=== PATIENT | male | born 1965 | race Caucasian/White ===

== ENCOUNTER → 2017-10-17 | Outpatient (CLI) | payer BC ==
[~2017-10-17] VITALS: Ht 170.2 cm; Wt 97.5 kg
[~2017-10-17] MED LIST: ASP81TEC PO; CATHETER FLUSH 10 ML SYR IV PRN; CEFD300C3 PO; ISM30TCR PO; LISI10TA PO; MTP25TSR PO; OMEP20CA6 PO; OMG1KC PO; PARO40TA47 PO; PNT40TEC PO; PRD20T PO; ROSU20TA14 PO; TICA90TA PO
[2017-10-17 09:01] VITALS: BP 138/81
[2017-10-17 09:13] VITALS: BP 131/76
[2017-10-17 09:15] VITALS: BP 145/76
[2017-10-17 09:23] VITALS: BP 152/74
[2017-10-17 09:25] VITALS: BP 161/79
--- NOTE | 2017-10-17 20:18 | STRESS TEST ---
DATE OF SERVICE: 10/17/2017 EXERCISE MYOVIEW STRESS TEST REPORT REFERRING PHYSICIAN: Dr. Alvarado. Baseline heart rate is 70. Baseline blood pressure 138/81. Baseline EKG is sinus rhythm with no ischemic changes. In summary, the patient was injected with 8.25 mCi of technetium-99 Myoview and the resting images were obtained. Then, the patient started exercising with the baseline heart rate, blood pressure and EKG mentioned above. The patient was able to exercise for a total of 10 minutes on standard Andrei protocol. With peak exercise level, EKG was showing minimal nondiagnostic changes, blood pressure was 185/73. During recovery, heart rate and blood pressure returned to baseline, EKG returned to baseline. The resting and stress images were reviewed and compared in the short axis, horizontal long axis and vertical long axis views. Review of the images showed diaphragmatic attenuation with mild decreased uptake at the inferoapical segment apex with subtle reversibility. SSS is 3. SDS 3. No significant ischemia or infarction was seen. TID value 1.04. On the gated images, the left ventricle appeared to be in normal size with normal contractility, calculated ejection fraction 57%. CONCLUSION: 1. Good exercise tolerance, a total of 10 minutes on standard Andrei protocol, total of 11.5 METs, achieving 89% of maximum expected heart rate. 2. Appropriate heart rate and blood pressure response to exercise, returned to baseline during recovery. 3. Minimal nondiagnostic EKG changes with exercise, returned to baseline during recovery. 4. Diaphragmatic attenuation with typical male pattern with no significant ischemia or infarction on SPECT images. 5. Normal left ventricular size with normal contractility, calculated ejection fraction 57%. Job ID: [id number] DocumentID: [id number] Dictated Date: 10/17/2017 12:09:25 Mining Teacher Date: 10/17/2017 15:44:02 Dictated By: MAURY VILLAFUERTE MD
== END ==
LOC: CARD 07:14
PROVIDERS: ATTEND Physician Assistant
DX: I25.10 Atherosclerotic heart disease of native coronary artery without angina pectoris (principal); I10 Essential (primary) hypertension; E78.2 Mixed hyperlipidemia; R07.89 Other chest pain
CPT/HCPCS: 78452; 93017; 93306

== ENCOUNTER 2018-04-07 05:38 | Outpatient (CLI) | payer BC ==
[~2018-04-07] VITALS: Ht 170.2 cm; Wt 97.5 kg
[~2018-04-07 05:38] MED LIST changes: -ASPI81TA16 PO; -LISI-552 PO; -METF500T8 PO; -OMEP20CA12 PO; -PARO40TA3 PO; -ROSU20TA31 PO
[2018-04-07] MEDS ORDERED: METF500T8 PO (10:51)
[2018-04-07] MEDS ORDERED: LISI-552 PO (10:51)
[2018-04-07] MEDS ORDERED: ROSU20TA31 PO (10:51)
[2018-04-07] MEDS ORDERED: ASPI81TA16 PO (10:51)
[2018-04-07] MEDS ORDERED: OMEP20CA12 PO (10:51)
[2018-04-07] MEDS ORDERED: PARO40TA3 PO (10:51)
[2018-04-07] MEDS ORDERED: OMG1KC PO (10:51)
== END 2018-04-07 11:19 ==
LOC: PREOP 05:38
PROVIDERS: ATTEND Internal Medicine
DX: Z01.818 Encounter for other preprocedural examination (principal)

== ENCOUNTER → 2018-04-07 | Outpatient (CLI) | payer BC ==
[~2018-04-07] MED LIST changes: +ASPI81TA16 PO; -CATHETER FLUSH 10 ML SYR IV PRN; +LISI-552 PO; +METF500T8 PO; +OMEP20CA12 PO; +PARO40TA3 PO; +ROSU20TA31 PO
--- NOTE | 2018-04-07 13:41 | Diagnostic Imaging Report ---
Indication: A 30 year history of palpable lump in the left scrotum. Exam compared 08/07/2008 Testicular parenchyma appeared normal bilaterally, no testicular mass. There was color Doppler blood flow to both testicles. A multiseptated cystic collection in the left scrotum increased in size from prior, today 5.4 x 3.9 x 5.0 cm, previously 3.4 x 3.1 x 2.8 cm. While this could be a loculated hydrocele given its appearance when both exams are reviewed its felt more likely large chronic increased spermatocele. No evidence for torsion. Impression: Septated left intrascrotal cystic lesion without vascularity or solid component shows increase in size from the study of 10 years earlier believed to be a large spermatocele versus multiseptated loculated hydrocele. An acute-appearing abnormality not found. No evidence of neoplasm. Normal appearance of the well-perfused testicles. Dictated by: Dictated on workstation # [id number]
== END ==
LOC: RAD 11:45
PROVIDERS: ATTEND Family Medicine
DX: N50.89 Other specified disorders of the male genital organs (principal)
CPT/HCPCS: 76870

== ENCOUNTER 2018-04-14 07:31 | Day surgery (SDC) | payer BC ==
--- NOTE | 2018-04-07 09:24 | HISTORY AND PHYSICAL ---
DATE OF SERVICE: COLONOSCOPY HISTORY AND PHYSICAL DATE OF ADMISSION: 04/14/2018. HISTORY OF PRESENT ILLNESS: The patient is a 53-year-old white male referred by Dr. Alvarado for his first screening colonoscopy. He seemed to be of average risk as he is not aware of any family history for colon cancer or colon polyps. He denies bright red blood per rectum, melena, bowel habit change or abdominal pain. Weight has been stable. PAST MEDICAL HISTORY: Significant for coronary artery disease, for unstable angina, he underwent cardiac catheterization in 2011, had complete occlusion of the right coronary artery and underwent drug-eluting Promus stent placement. His LV function was normal with an estimated ejection fraction of 60%. He has had no problems since. He has history of hyperlipidemia, insulin resistance and gastroesophageal reflux, which has been stable on omeprazole with no dysphagia and rare antacid usage. SOCIAL HISTORY: He works at [employer] with no past smoking history and no past drinking history reported. He is . FAMILY HISTORY: Pertinent for coronary artery disease. His mother at the age of 62 secondary to a stroke and also had cerebrovascular disease. His father had coronary artery bypass grafting at the age of 47 and is still living at the age of 72. He had one brother, who underwent stent placement in his 40s. PHYSICAL EXAMINATION: GENERAL: Reveals a pleasant white male, who appears to be in no acute distress. HEENT: Unremarkable. He does have a short thick neck with Mallampati class 4 oropharyngeal configuration. NECK: Revealed no JVD, adenopathy or bruits. CHEST: Clear to auscultation. CARDIOVASCULAR: Regular rate and rhythm without murmur, S3 or S4. ABDOMEN: Soft, supple without mass, organomegaly or tenderness. EXTREMITIES: Reveal no cyanosis, clubbing or edema. ASSESSMENT AND PLAN: 1. The patient was set up for a screening colonoscopy on 04/14. Prep instructions with a Suprep kit were given and questions were answered. 2. Considering body habitus and a Mallampati class 4 configuration, with his was present in the room, he questioned in regards to sleep apnea. The patient does snore and has had a breathing pattern compatible with witnessed apneas according to his . He can fall asleep easily and takes minimal time. He denies morning headaches. Feels that his sleep is restorative, however. He is clearly high risk for significant sleep apnea with the history of hypertension and coronary artery disease. We will be cognitive of this during the procedure and see if sedation does lead to apnea with hypoxia. Would recommend consideration for sleep testing. I thank you for the referral of this pleasant gentleman. With review of his electronic medical record and today's discussion, 45 minutes of my personal care time spent and another 15 minutes of staff time going over prep instructions and setting of the procedure to be performed. Job ID: [id number] DocumentID: [id number] Dictated Date: 04/07/2018 08:57:55 Operating Room Aide Date: 04/07/2018 09:23:52 Dictated By: LIZETH OWENS MD [facility]
[~2018-04-14] VITALS: Ht 170.2 cm; Wt 97.5 kg
[~2018-04-14 07:31] MED LIST changes: +ASPI81TA16 PO; +LISI-552 PO; +METF500T8 PO; +OMEP20CA12 PO; +PARO40TA3 PO; +ROSU20TA31 PO
[2018-04-14 07:35] VITALS: BP 153/91
[2018-04-14] MEDS ORDERED: D5 LR IV SOLUTION 1,000 ML IV ONE (07:39)
--- NOTE | 2018-04-14 08:52 | Pre-Op Note & Conscious Sedat ---
Pre-Operative Progress Note H&P Reviewed The H&P was reviewed, patient examined and no changes noted. Date H&P Reviewed: Apr 14, 2018 Time H&P Reviewed: 08:40 Conscious Sedation Pre-Proced ASA Class: 2 Airway Mallampati Classification: ([place] appropriate class) I. II. III, IV Lungs Heart ASA score ASA 1: a normal healthy patient ASA 2: a patient with a mild systemic disease (mid diabetes, controlled hypertension, obesity ASA 3: a patient with a severe systemic disease that limits activity (angina , COPD, prior Myocardial infarction) ASA 4: a patient with an incapacitating disease that is a constant threat to life (CHF, renal failure) ASA 5: a moribund patient not expected to survive 24 hrs. (ruptured aneurysm) ASA 6: a declared brain patient whose organs are being harvested. For emergent operations, add the letter E after the classification Grade 4 Sedation Plan: Analgesia, Amnesia, Plan communicated to team members, Discussed options with patient/fam, Discussed risks with patient/fam Note The patient is an appropriate candidate to undergo the planned procedure, sedation, and anesthesia. The patient immediately re-assessed prior to indication. LIZETH OWENS MD Apr 14, 2018 08:52
[2018-04-14] MEDS ORDERED: MIDAZOLAM 2 MG/2 ML (VERSED) VIAL ONE ×2 (08:54)
[2018-04-14] MEDS ORDERED: LIDOCAINE JELLY 2% (XYLOCAINE) 5 ML TUBE ONE (08:54)
[2018-04-14] MEDS ORDERED: fentaNYL INJECTION 100 MCG/2 ML AMP ONE (08:54)
[2018-04-14] MEDS: fentaNYL INJECTION 100 MCG/2 ML AMP IVP PRN ×2 (08:58→09:01)
[2018-04-14 09:30] VITALS: BP 155/79
[2018-04-14 09:55] VITALS: BP 154/84
[2018-04-14 10:00] VITALS: BP 154/84
[2018-04-14] MEDS ORDERED: D5 LR IV SOLUTION 1,000 ML IV STA (10:02)
[2018-04-14] MEDS ORDERED: LIDOCAINE JELLY 2% (XYLOCAINE) 5 ML TUBE MM PRN (10:15)
[2018-04-14] MEDS ORDERED: MIDAZOLAM 2 MG/2 ML (VERSED) VIAL IVP PRN (10:15)
--- NOTE | 2018-04-14 14:14 | OPERATIVE REPORT ---
DATE OF SERVICE: 04/14/2018 COLONOSCOPY SUMMARY REFERRING PHYSICIAN: Ruth Alvarado DO INDICATION FOR THE PROCEDURE: Screening colonoscopy. The patient was placed in the left lateral decubitus position. Prior to doing a colonoscopy, digital rectal evaluation was performed. There is a small nonthrombosed external hemorrhoid present. Anal sphincter tone was normal and the perianal reflex is intact. The prostate is mild to moderately enlarged, anodular and nontender to digital inspection. No abnormalities to digital inspection of the distal rectal vault or anal canal. The colonoscope was then inserted into the rectum and under direct visualization advanced to the cecum. The cecum was identified by identification of the ileocecal valve and cecal strap. Photographic documentation was obtained. Careful inspection was made as the colonoscope was withdrawn. The patient tolerated the procedure well. FINDINGS: There was one nonthrombosed external hemorrhoid present with no evidence for internal hemorrhoids. The rectum was unremarkable. Present in the distal sigmoid colon was a diminutive hyperplastic appearing polyp. It was photographed and biopsied and ablated with no subsequent blood loss utilizing the hot forceps. The remainder of the sigmoid colon, descending colon, splenic flexure, transverse colon, hepatic flexure, ascending colon and cecum were unremarkable. ASSESSMENT: 1. One diminutive hyperplastic appearing polyp was removed via hot forceps from the distal sigmoid colon. This is otherwise normal colonoscopy to cecum. 2. Digital rectal evaluation was compatible with mild to moderate BPH with uniform consistency to the prostate. No nodularity or tenderness being noted. 3. Likely old external hemorrhoid, asymptomatic. No evidence for internal hemorrhoids. 4. The patient reported change in stool caliber most likely due to rectal contraction issues. No evidence for obstruction. 5. The patient has oral anatomy and history suspicious for underlying sleep apnea. He; however, did not sleep during the test, was talkative throughout the procedure such that I could not evaluate sleeping respiratory pattern. I would advise consideration for sleep study evaluation. I thank you for the referral of this pleasant gentleman. I would advocate consideration for repeat screening colonoscopy in 10 years pending health status at that time as he reports no family history for colon cancer. Sincerely, Job ID: [id number] DocumentID: [id number] Dictated Date: 04/14/2018 09:40:38 Team Sports Sales Associate Date: 04/14/2018 14:13:51 Dictated By: LIZETH OWENS MD [facility]
== END 2018-04-14 10:00 | disposition home or self-care (01) ==
LOC: ENDO 07:31
PROVIDERS: ATTEND Internal Medicine
DX: Z12.11 Encounter for screening for malignant neoplasm of colon (principal); K63.5 Polyp of colon; K64.4 Residual hemorrhoidal skin tags; N40.0 Benign prostatic hyperplasia without lower urinary tract symptoms; I25.10 Atherosclerotic heart disease of native coronary artery without angina pectoris; Z95.5 Presence of coronary angioplasty implant and graft; E88.81 Metabolic syndrome and other insulin resistance; K21.9 Gastro-esophageal reflux disease without esophagitis